=== PATIENT | female | born 1950 | race Caucasian/White ===

== ENCOUNTER → 2017-12-24 | Outpatient (CLI) | payer MEDICARE, MEDICAID | LOC: PREOP 05:38 | PROVIDERS: ATTEND Orthopaedic Surgery | DX: Z01.818 Encounter for other preprocedural examination (principal); M48.061 Spinal stenosis, lumbar region without neurogenic claudication ==

== ENCOUNTER 2018-02-22 10:01 | Outpatient (CLI) | payer MEDICARE, MEDICAID ==
[~2018-02-22] VITALS: Ht 157.5 cm; Wt 75.7 kg
[2018-02-22] MEDS ORDERED: CLOP75TA69 PO (10:49)
[2018-02-22] MEDS ORDERED: ROSU20TA PO (10:49)
[2018-02-22] MEDS ORDERED: METF10002 PO (10:49)
[2018-02-22] MEDS ORDERED: FURO-124 PO (10:49)
[2018-02-22] MEDS ORDERED: INSU100I10 SQ (10:49)
[2018-02-22] MEDS ORDERED: NF-ESOM40C PO (10:49)
[2018-02-22] MEDS ORDERED: IMMU10VI14 SQ (10:49)
[2018-02-22] MEDS ORDERED: GABA-488 PO (10:49)
[2018-02-22] MEDS ORDERED: APIX5TAB PO (10:49)
[2018-02-22] MEDS ORDERED: VARE1TAB22 PO (10:49)
[2018-02-22] MEDS ORDERED: VENL150C PO (10:49)
[2018-02-22] MEDS ORDERED: NF-LAMO200 PO (10:49)
[2018-02-22] MEDS ORDERED: AMIO200T2 PO (10:49)
[2018-02-22] MEDS ORDERED: ROTI1PAT11 TD (10:49)
[2018-02-25] MEDS ORDERED: CETI10TA20 PO (14:06)
[2018-02-25] MEDS ORDERED: NITR0.4T39 SL (14:06)
== END 2018-02-22 16:03 ==
LOC: PREOP 10:01
PROVIDERS: ATTEND Orthopaedic Surgery
DX: Z01.818 Encounter for other preprocedural examination (principal); M48.061 Spinal stenosis, lumbar region without neurogenic claudication

== ENCOUNTER 2018-03-01 05:53 | Inpatient (IN) | payer MEDICARE, MEDICAID ==
[2018-03-01] VITALS (10 sets, daily range): BP systolic 133–177; BP diastolic 50–68
[~2018-03-01] VITALS: Ht 157.5 cm; Wt 75.7 kg
[~2018-03-01 05:53] MED LIST: AMIO200T2 PO; APIX5TAB PO; CETI10TA20 PO; CLOP75TA69 PO; FURO-124 PO; GABA-488 PO; IMMU10VI14 SQ; INSU100I10 SQ; METF10002 PO; NF-ESOM40C PO; NF-LAMO200 PO; NITR0.4T39 SL; ROSU20TA PO; ROTI1PAT11 TD; VARE1TAB22 PO; VENL150C PO
[2018-03-01] MEDS ORDERED: CLINDAMYCIN 600 MG/50 ML IVPB 50 ML IV ONE (06:30)
[2018-03-01] MEDS ORDERED: LIDOCAINE PF 2% 5 ML (XYLOCAINE) VIAL ONE (06:31)
[2018-03-01] MEDS ORDERED: proPOfol 200 MG/20 ML (DIPRIVAN) VIAL IV ONE ×3 (06:31→09:27)
[2018-03-01] MEDS ORDERED: ROCURONIUM 10 MG/ML 5 ML SYRINGE IV ONE (06:31)
[2018-03-01] MEDS ORDERED: fentaNYL INJECTION 100 MCG/2 ML AMP ONE ×4 (06:31→14:22)
[2018-03-01] MEDS ORDERED: ONDANSETRON 4 MG/2 ML (SDV) Z0FRAN ONE (06:34)
[2018-03-01] MEDS ORDERED: PROPOFOL INJECTION 50 ML IV ONE (06:35)
[2018-03-01] MEDS ORDERED: SUCCINYLCHOLINE INJ 100 MG/5 ML SYR ONE (06:38)
[2018-03-01] MEDS ORDERED: SCOPOLAMINE 1.5 MG (TRANSDERM-SCOP) PATCH TOP ONE (06:45)
[2018-03-01] MEDS ORDERED: FAMOTIDINE 20MG/2ML IV (PEPCID) IV ONE (06:45)
[2018-03-01] MEDS ORDERED: ONDANSETRON 4 MG/2 ML (SDV) Z0FRAN IV ONE (06:45)
[2018-03-01] MEDS ORDERED: BUP/EPI 0.5% 1:200,000 (SENSORCAINE) 30 ML VIAL ONE (06:50)
[2018-03-01] MEDS ORDERED: VANCOMYCIN 1000 MG/VIAL ONE (06:51)
[2018-03-01] MEDS: LACTATED RINGERS 1,000 ML IV PRN ×2 (07:15→08:55)
[2018-03-01] MEDS ORDERED: ETOMIDATE IV SOLN 20 MG/10 ML VIAL ONE (07:16)
[2018-03-01 07:17] LABS: BASOPHILS # (AUTO) 0.1 10^3/uL (0.0-0.1); BASOPHILS % (AUTO) 0 % (0-10); EOSINOPHILS # (AUTO) 0.3 10^3/uL (0.0-0.3); EOSINOPHILS % (AUTO) 2 % (0-10); HEMATOCRIT 37 % (35-52); HEMOGLOBIN 11.8 G/DL (11.5-16.0); LYMPHOCYTES # (AUTO) 2.6 X 10^3 (1.0-4.0); LYMPHOCYTES % (AUTO) 22 % (12-44); MEAN CORPUSCULAR HEMOGLOBIN 27 PG (25-34); MEAN CORPUSCULAR HGB CONC 32 G/DL (32-36); MEAN CORPUSCULAR VOLUME 84 FL (80-99); MEAN PLATELET VOLUME 10.7 FL (7.4-10.4); MONOCYTES # (AUTO) 0.9 X 10^3 (0.0-1.0); MONOCYTES % (AUTO) 8 % (0-12); NEUTROPHILS # (AUTO) 8.1 X 10^3 (1.8-7.8); NEUTROPHILS % (AUTO) 68 % (42-75); PLATELET COUNT 323 10^3/uL (130-400); RED BLOOD COUNT 4.39 10^6/uL (4.35-5.85); RED CELL DISTRIBUTION WIDTH 17.1 % (10.0-14.5); WHITE BLOOD COUNT 11.9 10^3/uL (4.3-11.0)
[2018-03-01] MEDS ORDERED: KETAMINE HCL 100 MG/ML 5 ML VIAL ONE (07:32)
[2018-03-01 07:37] LABS: BUN/CREATININE RATIO 19; CALCIUM 9.1 MG/DL (8.5-10.1); CARBON DIOXIDE 23 MMOL/L (21-32); CHLORIDE 103 MMOL/L (98-107); CREATININE SERUM 0.79 MG/DL (0.60-1.30); GFR ESTIMATED > 60; GLUCOSE 170 MG/DL (70-105); POTASSIUM 3.4 MMOL/L (3.6-5.0); SODIUM 141 MMOL/L (135-145)
[2018-03-01] MEDS ORDERED: BACITRACIN 100,000 UNIT/NS 1000 ML POUR BOTTLE IR ONE ×2 (07:45)
[2018-03-01] MEDS ORDERED: PHENYLEPHRINE 100 MCG/ML 10 ML (ANESTHESIA) SYR ONE (07:47)
[2018-03-01] MEDS ORDERED: GLYCOPYRROLATE 0.2 MG/ML (ROBINUL) 2 ML VIAL ONE (08:11)
--- NOTE | 2018-03-01 09:43 | Diagnostic Imaging Report ---
Indication: Fluoroscopy for lumbar fusion. Fluoroscopy was provided in the OR for lumbar fusion. 40 seconds of fluoroscopy was utilized. 2 images were obtained demonstrating postop changes of extension of a posterior fusion at L2-3 level. There are vertical stabilization rods and bipedicular screws present from L2-L5 Impression: Fluoroscopy for lumbar spine surgery. Dictated by: Dictated on workstation # [id number]
[2018-03-01] MEDS ORDERED: NITROGLYCERIN 0.4 MG SL TABS BTL 25'S SL PRN (11:00)
[2018-03-01] MEDS ORDERED: BISACODYL 10 MG SUPP (DULCOLAX) PR PRN (11:15)
[2018-03-01] MEDS ORDERED: oxyCODONE/APAP 5/325MG (PERCOCET 5) TABLET PO PRN (11:15)
[2018-03-01] MEDS ORDERED: BISACODYL 5 MG (DULCOLAX) TABLET PO PRN (11:15)
[2018-03-01] MEDS ORDERED: MILK OF MAGNESIA 400 MG/5 ML 30 ML UDC PO PRN (11:15)
[2018-03-01] MEDS ORDERED: ONDANSETRON 4 MG/2 ML (SDV) Z0FRAN IV PRN (11:15)
[2018-03-01] MEDS ORDERED: ACETAMINOPHEN 325 MG TABLET/CAPLET (TYLENOL) PO PRN (11:15)
[2018-03-01] MEDS ORDERED: HYDROmorphone 1 MG/ML (DILAUDID) 1 ML SYRINGE ONE (11:22)
[2018-03-01] MEDS: HYDROmorphone 1 MG/ML (DILAUDID) 1 ML SYRINGE IV PRN ×2 (11:27→11:37)
[2018-03-01] MEDS ORDERED: fentaNYL INJECTION 100 MCG/2 ML AMP IVP PRN (11:45)
[2018-03-01] MEDS ORDERED: ONDANSETRON 4 MG/2 ML (SDV) Z0FRAN IVP PRN (11:45)
[2018-03-01] MEDS ORDERED: MEPERIDINE (DEMEROL) INJ 50 MG/ML IVP PRN (11:45)
[2018-03-01] MEDS: fentaNYL INJECTION 100 MCG/2 ML AMP IVP PRN ×2 (12:19→14:30)
[2018-03-01] MEDS ORDERED: SEVOFLURANE (ULTANE) 15 ML INHAL SOLN ONE (12:57)
[2018-03-01] MEDS: NS IV 1000 ML 1,000 ML IV SCH ×2 (13:47→14:52)
[2018-03-01] MEDS ORDERED: PATIENT MAY USE OWN MED,SINGLE MED PO SCH (14:00)
--- NOTE | 2018-03-01 16:13 | OPERATIVE REPORT ---
DATE OF SERVICE: 03/01/2018 SURGEON: Sheldon Philip DO DAMPPROOFER: MELY Zimmer. This is a medically necessary procedure. Assistance was necessary for retraction of vital neurovascular structures. Without an visitor services assistant, the procedure would not be possible. PREOPERATIVE DIAGNOSES: 1. Adjacent segment disease. 2. Lumbar radiculopathy. 3. Lumbar spinal stenosis (central, foraminal, connective tissue, bony). 4. Neurogenic claudication. POSTOPERATIVE DIAGNOSES: 1. Adjacent segment disease. 2. Lumbar radiculopathy. 3. Lumbar spinal stenosis (central, foraminal, connective tissue, bony). 4. Neurogenic claudication. PROCEDURE PERFORMED: 1. Attempted direct lateral interbody lumbar fusion. 2. L2-L3 posterior instrumentation. 3. L2-L3 posterior spinal fusion. 4. Revision L2-3 bilateral laminectomy and complete facetectomies. 5. Exploration of fusion. 6. Removal of hardware. 7. Use of local bone autograft. 8. Use of human allograft. COMPLICATIONS: None. SPECIMENS SENT: None. ESTIMATED BLOOD LOSS: See anesthesia records. ANESTHESIA: General endotracheal anesthesia with local anesthetic. HISTORY OF PRESENT ILLNESS: This is a very pleasant 67-year-old female who underwent an L3-5 instrumented fusion some time ago. She went on to develop adjacent segment disease at L2-3 and failed conservative measures for this. She did have critical stenosis at this level. It was planned to do a direct lateral fusion with posterior laminectomy and instrumentation. She understood the risks and benefits. DESCRIPTION OF PROCEDURE: The patient was identified by name on wrist band in the preoperative holding area. Her operative site was signed, consent was signed. SCDs were placed. Neuromonitoring was hooked up and antibiotics were started. She was taken to the operating room theater and placed under general endotracheal tube anesthesia, transferred to the operating room table in the lateral position with the left side up. She was secured to the table with 3-inch silk tape. Prepped and draped in usual sterile fashion. After a formal time out a longitudinal incision was then made over the L2-3 disk space. I then proceeded with a standard lateral retroperitoneal approach. There was significant scar tissue from prior surgery. I was unable to palpate the retroperitoneal space with any degree of confidence. I did not feel safe continuing with the procedure due to this scarring and obscuration of the retroperitoneal space. Therefore, I decided to abort. I irrigated the wound. I closed in my usual fashion and applied dressings. I then placed the patient in the prone position on a radiolucent Chito table. I prepped and draped the patient. I have brought in lateral x-ray and I made a midline lumbar incision over the old scar. I proceeded with bilateral subperiosteal paraspinal muscular approach exposing the existing hardware from L3, L4 and L5 as well as the L2-3 disk space. I placed new pedicle screws bilaterally using C-arm guidance at L2. I tested these with EMG neuro monitoring. They were in good position. Final x-ray demonstrated good position of those screws as well. I then removed all of the set screws from L3, L4 and L5 and I removed the rods. I did an exploration of fusion. There was a solid fusion at these levels. I placed a longer tiffany connecting, L2, L3, L4 and L5. I replaced the old set screws from L3 to L5 and I placed new set screws at the pedicle screws at L2. At this point, I did my decompression. This was done through significant scar tissue, which made this process quite difficult. I was able to use a high speed bur and Kerrison rongeurs to completely decompress the L2-3 level where there was significant stenosis. I finished, the thecal sac, the exiting nerve roots were thoroughly decompressed. I irrigated the wound with 2 liters of antibiotic enhanced irrigation, maintained hemostasis. I packed human allograft and local bone autograft in the left and the right gutters to promote posterior spinal fusion. I placed a Hemovac drain. I closed the wound in the usual layered fashion utilizing 0 Vicryl, followed by 2-0 Vicryl, followed by jody for skin. I applied dressings, took the patient in the supine position to the PACU where she awoke without incident. She tolerated the procedure well. PLAN: At this time, is to admit the patient for IV antibiotics, IV pain control and postoperative monitoring. We will have the patient out of bed on postoperative day #1 and discontinue the drain and Mercado per my protocol. Job ID: [id number] DocumentID: [id number] Dictated Date: 03/01/2018 10:36:00 Customer Account Manager Date: 03/01/2018 16:13:08 Dictated By: SHELDON PHILIP DO
[2018-03-01] MEDS: inSUlin ASPART (NovoLOG) 1 UNIT/0.01 ML (CHARGE PER UNIT) SC SCH ×2 (16:43→21:59)
[2018-03-01] MEDS: HYDROcodone/APAP 5 MG/325 MG (LORTAB) TAB PO PRN (20:29)
[2018-03-01] MEDS: ROSUVASTATIN 20 MG (CRESTOR) TABLET PO SCH (21:52)
[2018-03-01] MEDS: DOCUSATE SODIUM 100 MG (COLACE) CAP PO SCH (21:52)
[2018-03-01] MEDS: FAMOTIDINE 20 MG (PEPCID) TABLET PO SCH (21:52)
[2018-03-01] MEDS: GABAPENTIN 300 MG (NEURONTIN) CAP PO SCH (21:52)
[2018-03-01] MEDS: inSUlin DETERMIR 1 UNIT/0.01 ML (LEVEMIR) CHARGE PER UNIT SQ SCH (22:00)
[2018-03-02 00:01] VITALS: BP 151/67
[2018-03-02] MEDS: NS IV 1000 ML 1,000 ML IV SCH ×2 (00:36→10:32)
[2018-03-02 04:20] VITALS: BP 138/63
[2018-03-02 04:46] LABS: HEMOGLOBIN 10.2 G/DL (11.5-16.0); MEAN PLATELET VOLUME 10.9 FL (7.4-10.4); RED BLOOD COUNT 3.8 10^6/uL (4.35-5.85); RED CELL DISTRIBUTION WIDTH 17.6 % (10.0-14.5); WHITE BLOOD COUNT 13.3 10^3/uL (4.3-11.0)
[2018-03-02 05:18] LABS: ALANINE AMINOTRANSFERASE 19 U/L (0-55); ALBUMIN 3.2 GM/DL (3.2-4.5); ALKALINE PHOSPHATASE 84 U/L (40-136); BILIRUBIN,TOTAL 0.4 MG/DL (0.1-1.0); BUN/CREATININE RATIO 17; CALCIUM 8.1 MG/DL (8.5-10.1); CARBON DIOXIDE 26 MMOL/L (21-32); CHLORIDE 106 MMOL/L (98-107); GFR ESTIMATED > 60; GLUCOSE 204 MG/DL (70-105); POTASSIUM 3.5 MMOL/L (3.6-5.0); SODIUM 141 MMOL/L (135-145); TOTAL PROTEIN 5.6 GM/DL (6.4-8.2)
[2018-03-02] MEDS: PANTOPRAZOLE 40 MG (PROTONIX) TAB PO SCH (06:13)
[2018-03-02] MEDS: HYDROcodone/APAP 5 MG/325 MG (LORTAB) TAB PO PRN ×3 (06:13→23:18)
[2018-03-02] MEDS: inSUlin ASPART (NovoLOG) 1 UNIT/0.01 ML (CHARGE PER UNIT) SC SCH ×4 (06:14→23:15)
[2018-03-02] MEDS: VENlafaxine XR 75 MG (EFFEXOR XR) CAP PO SCH (06:14)
[2018-03-02] MEDS: MULTIVIT W/MINERALS TAB (THERAGRAN M) PO SCH (06:14)
[2018-03-02 08:00] VITALS: BP 161/71
[2018-03-02] MEDS: LORATADINE (CLARITIN) 10 MG TAB PO SCH (08:09)
[2018-03-02] MEDS: CYCLOBENZAPRINE 10 MG (FLEXERIL) TAB PO PRN ×2 (08:09→20:29)
[2018-03-02] MEDS: DOCUSATE SODIUM 100 MG (COLACE) CAP PO SCH ×2 (08:09→20:28)
[2018-03-02] MEDS: AMIODARONE 200 MG (CORDARONE) TAB PO SCH (08:09)
[2018-03-02] MEDS: FUROSEMIDE 40 MG (LASIX) TAB PO SCH (08:09)
[2018-03-02] MEDS: FAMOTIDINE 20 MG (PEPCID) TABLET PO SCH ×2 (08:09→20:29)
[2018-03-02] MEDS: ROTIGOTINE 6 MG TD SCH (08:10)
--- NOTE | 2018-03-02 09:04 | Progress Note (SOAP) ---
Subjective Date Seen by Provider: March 02, 2018 Time Seen by Provider: 05:00 Subjective/Events-last exam POD #1 s/p L2-3 laminectomy with extension of PSIF. She is laying in bed sadler c/ o mild back pain. Denies n/t weakness h/a f/c/n/v/cp/sob. Review of Systems General: No Chills, No Night Sweats HEENT: No Head Aches Pulmonary: No Dyspnea Cardiovascular: No: Chest Pain Gastrointestinal: No: Nausea, Vomiting, Abdominal Pain Musculoskeletal: back pain Neurological: No: Weakness Objective Exam Vital Signs Date Time Temp Pulse Resp B/P (MAP) Pulse Ox O2 Delivery O2 Flow Rate FiO2 03/02/18 08:00 97.2 61 20 161/71 (101) 96 Room Air 03/02/18 04:20 97.3 62 16 138/63 (88) 96 Room Air 03/02/18 00:01 97.6 68 16 151/67 (95) 94 Room Air 03/01/18 20:30 Nasal Cannula 3.00 03/01/18 19:40 97.8 66 16 141/66 (91) 95 Room Air 03/01/18 15:25 96.7 64 16 134/67 (89) 98 Room Air 03/01/18 14:55 68 133/66 (88) 98 Room Air 03/01/18 14:25 68 145/67 (93) 98 Room Air 03/01/18 14:00 96 Nasal Cannula 3.00 03/01/18 13:55 71 158/68 (98) 94 Room Air 03/01/18 13:25 71 166/68 (100) 93 Room Air 03/01/18 12:55 74 170/63 (98) 97 Room Air 03/01/18 12:25 97.1 75 16 176/63 (100) 98 Room Air 03/01/18 12:00 Nasal Cannula 3.00 03/01/18 11:55 96.9 71 16 177/66 (103) 96 Room Air I & O 03/02/18 07:00 Intake Total 4470 ml Output Total 1345 ml Balance 3125 ml Capillary Refill : Less Than 3 Seconds General Appearance: No Apparent Distress (cpap in place) Neck: Normal Inspection Respiratory: No Accessory Muscle Use, No Respiratory Distress Cardiovascular: Regular Rate, Rhythm, No Edema Peripheral Pulses: 2+ Dorsalis Pedis (R), 2+ Left Dors-Pedis (L) Gastrointestinal: other (left side incision, no retroperitoneal signs incluidng vangie rodríguez, agapito lara) Extremity: Normal Capillary Refill, Normal Inspection Neurologic/Psychiatric: Alert, Oriented x3, No Motor/Sensory Deficits Skin: Normal Color Results Lab Laboratory Tests 03/01/18 10:53: Glucometer 247H 03/01/18 16:20: Glucometer 319H 03/01/18 20:58: Glucometer 272H 03/02/18 03:55: White Blood Count 13.3H, Red Blood Count 3.80L, Hemoglobin 10.2L, Hematocrit 32L , Mean Corpuscular Volume 84, Mean Corpuscular Hemoglobin 27, Mean Corpuscular Hemoglobin Concent 32, Red Cell Distribution Width 17.6H, Platelet Count 327, Mean Platelet Volume 10.9H, Sodium Level 141, Potassium Level 3.5L, Chloride Level 106, Carbon Dioxide Level 26, Anion Gap 9, Blood Urea Nitrogen 12, Creatinine 0.70, Estimat Glomerular Filtration Rate > 60, BUN/Creatinine Ratio 17, Glucose Level 204H, Calcium Level 8.1L, Total Bilirubin 0.4, Aspartate Amino Transf (AST/SGOT) 19, Alanine Aminotransferase (ALT/SGPT) 19, Alkaline Phosphatase 84, Total Protein 5.6L, Albumin 3.2 Assessment/Plan Assessment/Plan Assess & Plan/Chief Complaint assessment; POD #1 s/p L2-3 laminectomy with extension of PSIF attempted L2-3 lateral COPD Diabetes CAD HTN Plan: brace when OOB monitor labs continue drain PT hold anti coagulation until :POD #5, scd for dvt prophylaxis pain control diabetic diet with bgl achs, ssi Clinical Quality Measures DVT/VTE Risk/Contraindication: Risk Factor Score Per Nursin RFS Level Per Nursing on Admit: 4+=Very High BLANKA MCDONALD March 02, 2018 09:04
--- NOTE | 2018-03-02 09:28 | Diagnostic Imaging Report ---
INDICATION: Back pain. FINDINGS: There are postsurgical changes of an L2 through L5 fusion with bilateral pedicle screws and rods. The hardware is in satisfactory position. Bone grafts are seen in the L3-4 and L4-5 disc spaces. The vertebral body heights are well-maintained. There is no spondylolysis or spondylolisthesis. IMPRESSION: Stable postsurgical changes of L2 through L5 fusion as described above. Dictated by: Dictated on workstation # [id number]
--- NOTE | 2018-03-02 11:08 | Physical Therapy Evaluation ---
PT Evaluation-General Medical Diagnosis Admission Date March 01, 2018 at 05:53 Medical Diagnosis: L2-3 laminectomy Onset Date: March 01, 2018 Therapy Diagnosis Therapy Diagnosis: impaired mobility, strength, endurance Height/Weight Height (Feet): 5 Height (Inches): 2.00 Weight (Pounds): 167 Weight (Ounces): 0.0 Precautions Precautions/Isolations: Fall Prevention, Standard Precautions Weight Bear Status Right Lower Extremity: Right Full Weight Bearing Left Lower Extremity: Left Full Weight Bearing Referral Physician: Jorge L Romero Reason for Referral: Evaluation/Treatment Medical History Pertinent Medical History: CAD, COPD, DM, HTN Current History L2-3 laminectomy with extension of PSIF Reviewed History: Yes Social History Home: Single Level Current Living Status: Alone Entry Into Home: Level Entry Prior/Core FIM Prior Level of Function Functional [place] Measure 0=Not Assessed/NA 4=Minimal Assistance 1=Total Assistance 5=Supervision or Setup 2=Maximal Assistance 6=Modified [place] 3=Moderate Assistance 7=Complete [place] Bed Mobility: 6 Transfers (B,C,W/C) (FIM): 6 Gait: 6 Patient used a rolling walker before and had a scooter for long distances PT Evaluation-Current Subjective Patient in bed pre tx, agrees to PT, has 5/10 pain in low back. Pt/Family Goals to be independent at home Objective Patient Orientation: Person, Place, Situation Attachments: IV TLSO ROM/Strength ROM Lower Extremities WNL Strength Lower Extremities 4/5 gross bilateral lower extremities Neuromuscular (Tone, Coordination, Reflexes) NT Sensory Vision: Functional Hearing: Functional Sensation Right Lower Extremit: Intact Sensation Left Lower Extremity: Intact Transfers Functional [place] Measure 0=Not Assessed/NA 4=Minimal Assistance 1=Total Assistance 5=Supervision or Setup 2=Maximal Assistance 6=Modified [place] 3=Moderate Assistance 7=Complete [place] Transfers (B, C, W/C) (FIM): 5 Scootin Rollin Supine to/from Sit: 5 Sit to/from Stand: 5 bed t/f WC(FIM only if WC use): 5 Gait Mode of Locomotion: Walk Anticipated Mode of Locomotion: Walk Gait (FIM): 5 Distance: 150' Gait Level of Assist: 5 Gait Persons Needed: 1 Gait Assistive Device: FWW Comments/Gait Description slow ambulation but steady Balance Sitting Static: Normal Sitting Dynamic: Normal Standing Static: Good Standing Dynamic: Good Treatment seated exercises x20 (AP, LAQ) Assessment/Needs Patient has impaired mobility, strength, endurance post lumbar spine surgery. Rehab Potential: Fair PT Short Term Goals Short Term Goals Time Frame: March 09, 2018 Transfers (B,C,W/C) (FIM): 6 Gait (FIM): 6 Gait Distance Comment: 200' Gait Level of Assist: 6 Gait Assistive Device: FWW PT Plan Problem List Problem List: Activity Tolerance, Functional Strength, Safety, Balance, Gait, Transfer, Bed Mobility, ROM Treatment/Plan Treatment Plan: Continue Plan of Care Treatment Plan: Bed Mobility, Education, Functional Activity Kathy, Functional Strength, Gait, Safety, Therapeutic Exercise, Transfers Treatment Duration: March 09, 2018 Frequency: 11 times per week Estimated Hrs Per Day: .25 hour per day (15-30') Patient and/or Family Agrees t: Yes Safety Risks/Education Patient Education: Gait Training, Transfer Techniques, Reviewed Precautions, Correct Positioning, Reviewed Don/Doff Brace, Disease Process, Safety Issues Teaching Recipient: Patient Teaching Methods: Demonstration, Discussion Response to Teaching: Reinforcement Needed Discharge Recommendations Plan Patient will perform bed mobility and transfer training, balance and endurance training, functional strengthening, stair training, gait training, and education , to improve functional mobility and independence at home. Therapy D/C Recommendations: Home w/ Family Support Time/GCodes Time In: 1045 Time Out: 1105 Total Billed Treatment Time: 20 Total Billed Treatment 1 visit TAMIR 20' EDGARD SU PT March 02, 2018 11:08
[2018-03-02 12:00] VITALS: BP 123/59
--- NOTE | 2018-03-02 13:04 | Consultation-Hospitalist ---
HPI History of Present Illness: HPI/Chief Complaint The patient is a 67-year-old white female who underwent a lumbar discectomy and fusion on 03/01. She has previously had a discectomy and fusion at the next level. She reports that the numbness has left and she was able to walk without severe pain today. She has multiple other morbidities. These include tobaccoism/COPD, diabetes mellitus type II, and coronary artery disease. She continues to smoke. She also reports that her blood sugars have been much higher here in the hospital than they are at home. She uses only Levemir and her outpatient regimen. Source: patient Exam Limitations: no limitations Date Seen 03/02/18 Attending Physician Sheldon Philip DO PCP No,Local Physician Referring Physician Date of Admission March 01, 2018 at 05:53 Home Medications & Allergies Home Medications Reviewed patient Home Medication Reconciliation performed by pharmacy medication reconciliations nursing technician and/or nursing. Patients Allergies have been reviewed. Allergies Allergies Coded Allergies Penicillins (Verified Allergy, Unknown, RASH, 02/22/18) adhesive tape (Verified Allergy, Unknown, HIVES, 02/22/18) codeine (Verified Allergy, Unknown, NAUSEA, 02/22/18) morphine (Verified Allergy, Unknown, HIVES, 02/22/18) diazepam (Verified Adverse Reaction, Unknown, hallicunications, 02/22/18) Past Xrbstpp-Jopglx-Vhmmzj Hx Past Med/Social Hx: Reviewed Nursing Past Med/Soc Hx Patient Social History Alcohol Use: Denies Use Recreational Drug Use: No Smoking Status: Current Everyday Smoker Type Used: Cigarettes Physical Abuse Screen: No Sexual Abuse: No Recent Foreign Travel: No Contact w/other who traveled: No Recent Hopitalizations: No Recent Infectious Disease Expo: No Immunizations Up To Date Date of Pneumonia Vaccine: February 22, 2017 Seasonal Allergies Seasonal Allergies: No Past Medical History Currently Using BIPAP: Yes Gastrointestinal: Gastroesophageal Reflux Musculoskeletal: Arthritis, Chronic Back Pain, Fractures Psychosocial: Depression History of Blood Disorders: No Family History Diabetes mellitus 19 MOTHER Review of Systems Constitutional: see HPI EENTM: no symptoms reported Respiratory: cough, dyspnea on exertion Cardiovascular: no symptoms reported Gastrointestinal: no symptoms reported Genitourinary: no symptoms reported : No Musculoskeletal: back pain, neck pain Skin: no symptoms reported Psychiatric/Neurological: No Symptoms Reported Physical Exam Physical Exam Vital Signs Vital Signs - First Documented 03/01/18 03/01/18 06:30 12:00 Temp 98.4 Pulse 67 Resp 16 B/P (MAP) 143/50 (81) Pulse Ox 94 O2 Delivery Room Air O2 Flow Rate 3.00 Capillary Refill : Less Than 3 Seconds General Appearance: No Apparent Distress Eyes: Bilateral Eye Normal Inspection HEENT: Normal ENT Inspection Neck: Normal Inspection Respiratory: Other (increased AP diameter. Distant breath sounds) Cardiovascular: Other (grade 2-3 systolic murmur heard at the right and left second intercostal space) Gastrointestinal: Normal Bowel Sounds, No Organomegaly Extremity: Normal Capillary Refill, Normal Inspection Neurologic/Psychiatric: Alert, Oriented x3, No Motor/Sensory Deficits, Normal Mood/Affect Skin: Normal Color, Warm/Dry Lymphatic: No Adenopathy Results Results/Procedures Labs Laboratory Tests 03/01/18 07:04 03/02/18 03:55 Patient resulted labs reviewed. Assessment/Plan Assessment and Plan Assess & Plan/Chief Complaint Lumbar disc disease with radiculopathy. 2.COPD/tobaccoism. 3.diabetes mellitus type II. 4.history of coronary artery disease Plan: Continue PT and activity. Make adjustments to maintain blood sugars below 200. Clinical Quality Measures DVT/VTE Risk/Contraindication: Risk Factor Score Per Nursin RFS Level Per Nursing on Admit: 4+=Very High ROSA M PUENTES MD March 02, 2018 13:04
--- NOTE | 2018-03-02 13:07 | Anesthesia-General Post-Op ---
General Patient Condition Mental Status/LOC: Same as Preop Cardiovascular: Satisfactory Nausea/Vomiting: Absent Respiratory: Satisfactory Pain: Controlled Complications: Absent Post Op Complications Complications None Follow Up Care/Instructions Patient Instructions None needed. Anesthesia/Patient Condition Patient Condition Patient is doing well, no complaints, stable vital signs, no apparent adverse anesthesia problems. No complications reported per nursing. D/C home per [facility] Criteria: Yes PETER ARCOS CRNA March 02, 2018 13:07
--- NOTE | 2018-03-02 13:40 | Occupational Therapy Eval ---
OT Evaluation-General/PLF Medical Diagnosis Admission Date March 01, 2018 at 05:53 Medical Diagnosis: L2-3 laminectomy Onset Date: March 01, 2018 Therapy Diagnosis Therapy Diagnosis: Weakness Height/Weight Height (Feet): 5 Height (Inches): 2.00 Weight (Pounds): 167 Weight (Ounces): 0.0 Precautions Precautions/Isolations: Fall Prevention, Standard Precautions Safety Interventions: None Weight Bear Status back/spinal precautions. Referral Physician: Jorge L Romero Referral Comments Pt. has a new back brace in room. Nursing states that physician wants it on when up. Medical History Pertinent Medical History: CAD, COPD, DM, HTN Additional Medical History bilateral knee replacements. Reviewed History: Yes Social History Home: Single Level Current Living Status: Alone Entry Into Home: Level Entry ADL-Prior Level of Function ADL PLOF Comments Pt. was independent with daily tasks. 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 DME/Equipment: Shower DME/Equipment Comments Pt. has a walker but does not use it. Drive Self: Yes OT Current Status Subjective Pt. states that she has pain, but does not state pain level. Pain is in back area. Appearance Pt. in bed. Agrees to OT treatment. Mental Status/Objective Patient Orientation: Person, Place, Time, Situation Attachments: Drains, IV Current Hand Dominance: Right Upper Extremity ROM Pt. states that she hurt her shoulder in winter time by falling on it. States that she has to get a shoulder replacement. Shoulder is impaired. Left shoulder-WFL ADL-Treatment Functional [place] Measure 0=Not Assessed/NA 4=Minimal Assistance 1=Total Assistance 5=Supervision or Setup 2=Maximal Assistance 6=Modified [place] 3=Moderate Assistance 7=Complete IndependenceIRFPAI Quality Coding Scale 6 Independent with activity with or without an assistive device 5 Patient requires set up or clean up by helper. Patient completes activity by themselves 4 Supervision or touching assist (CGA). [place] provide cues , steadying assist 3 The helper provides less than half the effort to complete the activity 2 The helper provides more than half the effort to complete the activity 1 Dependent. The helper does all the effort to complete an activity 7 Patient refused to complete or attempt activity 9 The patient did not perform the activity before the current illness or injury 88 Not attempted due to Medical conditions or safety concerns Eating (FIM): 5 (Set up to open packages.) Grooming (FIM): 5 Bathing (FIM): 4 (Min assist to wash rear jessenia area only.) Upper Body Dressing (FIM): 5 (SBA to don sports bra and shirt.) Lower Body Dressing (FIM): 4 (Min assist to don pants due to catheter. SBA to don slippers.) Transfers (B, C, W/C) (FIM): 4 (CGA for supine-sit and sit-stand/transfer.) Toilet/Commode Transfer (FIM): 5 Other Treatments Pt. seen twice this morning, once for eval, and second time for ADLs after brace arrived. Pt. has sock aide and dressing stick at home, but states that she is unsure how to use them. Pt. transferred to chair and completed spongebath up in chair. Brace was fit to pt. Ambulated to toilet after treatment. Pt. would benefit from full education regarding hip kit. Education OT Patient Education: Correct positioning, Modified ADL techniques, Progress toward Goal/Update tx plan, Purpose of tx/functional activities, Reviewed precautions, Rehab process, Transfer techniques, Use of adapted equipment Teaching Recipient: Patient Teaching Methods: Demonstration, Discussion Response to Teaching: Verbalize Understanding, Return Demonstration OT Short Term Goals Short Term Goals Transfers (B,C,W/C) (FIM): 6 1=Demonstrate adherence to instructed precautions during ADL tasks. 2=Patient will verbalize/demonstrate understanding of assistive devices/ modifications for ADL. 3=Patient will improve strength/tolerance for activity to enable patient to perform ADL's. OT Field Checker Goals Field Checker Goals Time Frame: March 09, 2018 Eating (FIM): 6 Grooming(FIM): 6 Bathing(FIM): 6 Upper Body Dressing(FIM): 6 Lower Body Dressing(FIM): 6 Toileting(FIM): 6 Transfers (B,C,W/C) (FIM): 6 Toilet/Commode Transfer(FIM): 6 Shower Transfer(FIM): 6 Additional Goals: 1-Demonstrate ADL Tasks, 2-Verbalize Understanding, 3- ImproveStrength/Kathy 1=Demonstrate adherence to instructed precautions during ADL tasks. 2=Patient will verbalize/demonstrate understanding of assistive devices/ modifications for ADL. 3=Patient will improve strength/tolerance for activity to enable patient to perform ADL's. OT Education/Plan Problem List/Assessment Assessment: Decreased Activ Tolerance, Impaired I ADL's, Impaired Self-Care Skills Discharge Recommendations Plan/Recommendations: Continue POC Therapy D/C Recommendations: Home Independently, Occupational Therapy Home Care , Scheduled Assistance Equpiment Recommendations-D/C: Hip Kit Treatment Plan/Plan of Care Treatment,Training & Education: Yes Patient would benefit from OT for education, treatment and training to promote independence in ADL's, mobility, safety and/or upper extremity function for ADL' s. Plan of Care: ADL Retraining, Functional Mobility Treatment Duration: March 09, 2018 Frequency: 5 times per week Estimated Hrs Per Day: .5 hour per day Agreement: Yes Rehab Potential: Good Time/GCodes Start Time: 10:05 Stop Time: 11:50 Total Time Billed (hr/min): 55 Billed Treatment Time 6256-0621 1, EVM x 15minutes 4422-6660 1, ADL x 40minutes ELIECER NUÑEZ OT March 02, 2018 13:40
--- NOTE | 2018-03-02 15:29 | Physical Therapy Daily Note ---
PT Daily Note-Current Subjective Patient in bed pre tx, agrees to PT, has 6/10 pain in low back. Appearance Patient in recliner post tx with nurse call, phone, tray, all needs met. Mental Status Patient Orientation: Normal For Age Attachments: IV TLSO Transfers Functional [place] Measure 0=Not Assessed/NA 4=Minimal Assistance 1=Total Assistance 5=Supervision or Setup 2=Maximal Assistance 6=Modified [place] 3=Moderate Assistance 7=Complete IndependenceIRFPAI Quality Coding Scale 6 Independent with activity with or without an assistive device 5 Patient requires set up or clean up by helper. Patient completes activity by themselves 4 Supervision or touching assist (CGA). [place] provide cues , steadying assist 3 The helper provides less than half the effort to complete the activity 2 The helper provides more than half the effort to complete the activity 1 Dependent. The helper does all the effort to complete an activity 7 Patient refused to complete or attempt activity 9 The patient did not perform the activity before the current illness or injury 88 Not attempted due to Medical conditions or safety concerns Transfers (B, C, W/C) (FIM): 5 Scootin Rollin Supine to/from Sit: 5 Sit to/from Stand: 5 Bed to/from Chair: 5 Weight Bearing Right Lower Extremity: Right Full Weight Bearing Left Lower Extremity: Left Full Weight Bearing Gait Training Gait (FIM): 5 Distance: 250' Gait Level of Assist: 5 Gait Persons Needed: 1 Gait Assistive Device: FWW slow, antalgic, but steady Exercises Seated Therapy Exercises: Ankle pumps, Long arc quads Seated Reps: 20 Treatments bed mobility and transfers, ambulation, functional strengthening Assessment Current Status: Fair Progress improved endurance PT Short Term Goals Short Term Goals Time Frame: March 09, 2018 Transfers (B,C,W/C) (FIM): 6 Gait (FIM): 6 Gait Distance Comment: 200' Gait Level of Assist: 6 Gait Assistive Device: FWW PT Plan Problem List Problem List: Activity Tolerance, Functional Strength, Safety, Balance, Gait, Transfer, Bed Mobility, ROM Treatment/Plan Treatment Plan: Continue Plan of Care Treatment Plan: Bed Mobility, Education, Functional Activity Kathy, Functional Strength, Gait, Safety, Therapeutic Exercise, Transfers Treatment Duration: March 09, 2018 Frequency: 11 times per week Estimated Hrs Per Day: .25 hour per day (15-30') Patient and/or Family Agrees t: Yes Safety Risks/Education Patient Education: Gait Training, Transfer Techniques, Correct Positioning, Reviewed Don/Doff Brace, Safety Issues Teaching Recipient: Patient Teaching Methods: Demonstration, Discussion Response to Teaching: Reinforcement Needed Time/GCodes Time In: 1505 Time Out: 1520 Total Billed Treatment Time: 15 Total Billed Treatment 1 visit GT 15' EDGARD SU PT March 02, 2018 15:29
[2018-03-02 15:50] VITALS: BP 144/65
[2018-03-02 20:20] VITALS: BP 108/51
[2018-03-02] MEDS: GABAPENTIN 300 MG (NEURONTIN) CAP PO SCH (20:29)
[2018-03-02] MEDS: ROSUVASTATIN 20 MG (CRESTOR) TABLET PO SCH (20:32)
[2018-03-02] MEDS: inSUlin DETERMIR 1 UNIT/0.01 ML (LEVEMIR) CHARGE PER UNIT SQ SCH (23:15)
[2018-03-03 00:08] VITALS: BP 143/79
[2018-03-03] MEDS: NS IV 1000 ML 1,000 ML IV SCH (01:23)
[2018-03-03 04:42] VITALS: BP 137/74
[2018-03-03] MEDS ORDERED: OXYC-471 PO (05:54)
--- NOTE | 2018-03-03 05:57 | Discharge Inst-Simple/Standard ---
Discharge Inst-Standard Discharge Medications New, Converted or Re-Newed RX: RX on Chart Patient Instructions/Follow Up Plan of Care/Instructions/FU: may resume anti coagulation - plavix and eliquis, on POD #5 - 03/06/2018 - cousneled on s/s of epidural hematoma dont bend lift twist push or pull keep dressings on, keep incision dry follow up in 2 weeks in clinic wear back brace when ambulatory Activity as Tolerated: No Discharge Diet: ADA Diet Return to The Hospital For: shortness of breath, chest pain LE swelling, redness, or warmth or pain neurologic changes fever, chills BLANKA MCDONALD March 03, 2018 05:57
[2018-03-03] MEDS: inSUlin ASPART (NovoLOG) 1 UNIT/0.01 ML (CHARGE PER UNIT) SC SCH ×2 (06:00→11:49)
--- NOTE | 2018-03-03 06:03 | Discharge Summary ---
Diagnosis/Chief Complaint Date of Admission March 01, 2018 at 05:53 Date of Discharge 03/03/2018 Admission Diagnosis Admission Diagnosis lumbar stenosis with neurogenic claudication Discharge Diagnosis same Reason Hospital Visit Lumbar decompression and fusion Discharge Summary Hospital Course Hospital Course Kim was admitted for lumbar stenosis with neurogenic claudication referactory to conservative treatment. She has a significant history of diabetes, copd and cad. She tolerated the surgery well and progressed with PT post operatively. Her vs remained stable and pain was well controlled. She was dismissed home on POD #2 Labs Laboratory Tests 03/01/18 06:29: Glucometer 164H 03/01/18 07:04: White Blood Count 11.9H, Red Cell Distribution Width 17.1H, Mean Platelet Volume 10.7H, Neutrophils # (Auto) 8.1H, Potassium Level 3.4L, Anion Gap 15H, Glucose Level 170H 03/01/18 10:53: Glucometer 247H 03/01/18 16:20: Glucometer 319H 03/01/18 20:58: Glucometer 272H 03/02/18 03:55: White Blood Count 13.3H, Red Blood Count 3.80L, Hemoglobin 10.2L, Hematocrit 32L , Red Cell Distribution Width 17.6H, Mean Platelet Volume 10.9H, Potassium Level 3.5L, Glucose Level 204H, Calcium Level 8.1L, Total Protein 5.6L 03/02/18 11:27: Glucometer 224H 03/02/18 16:17: Glucometer 241H 03/02/18 21:19: Glucometer 253H 03/03/18 05:31: post op imaging shows stable PLDF L2-5 Procedures None. Discharge Physical Examination Allergies: Coded Allergies: Penicillins (Verified Allergy, Unknown, RASH, 02/22/18) adhesive tape (Verified Allergy, Unknown, HIVES, 02/22/18) codeine (Verified Allergy, Unknown, NAUSEA, 02/22/18) morphine (Verified Allergy, Unknown, HIVES, 02/22/18) diazepam (Verified Adverse Reaction, Unknown, hallicunications, 02/22/18) Vitals & I&Os Vital Signs Date Time Temp Pulse Resp B/P (MAP) Pulse Ox O2 Delivery O2 Flow Rate FiO2 03/03/18 04:42 97.7 66 19 137/74 (95) 94 Room Air 03/01/18 20:30 3.00 General Appearance: Alert, Oriented X3, Cooperative, No Acute Distress HEENT: Atraumatic Cardiovascular: Regular Rate Abdominal: Soft, No Tenderness, No Masses Extremities: No Clubbing, No Cyanosis, No Edema, Normal Pulses Skin: No Rashes, No Breakdown Neuro: Normal Gait, Normal Speech, Strength at 5/5 X4 Ext, Normal Tone, Sensation Intact Psych/Mental Status: Mental Status NL Discussion & Recommendations Patient to be dismissed home Rx for pain medication on chart patient counseled and when to resume anti coagulation as well as s/s of epidural hematome will follow up in the clinic in 2 weeks for post operative care Discharge Home Medications Reviewed and agree with Discharge Medication list on patient's Discharge Instruction sheet Instructions to Patient/Family Please see electronic discharge instructions given to patient. Clinical Quality Measures DVT/VTE Risk/Contraindication: Risk Factor Score Per Nursin RFS Level Per Nursing on Admit: 4+=Very High BLANKA MCDONALD March 03, 2018 06:03
[2018-03-03 06:48] LABS: BASOPHILS % (AUTO) 0 % (0-10); EOSINOPHILS # (AUTO) 0.2 10^3/uL (0.0-0.3); EOSINOPHILS % (AUTO) 2 % (0-10); HEMATOCRIT 32 % (35-52); HEMOGLOBIN 9.6 G/DL (11.5-16.0); LYMPHOCYTES # (AUTO) 2.6 X 10^3 (1.0-4.0); LYMPHOCYTES % (AUTO) 25 % (12-44); MEAN CORPUSCULAR HEMOGLOBIN 26 PG (25-34); MEAN CORPUSCULAR HGB CONC 30 G/DL (32-36); MEAN CORPUSCULAR VOLUME 86 FL (80-99); MEAN PLATELET VOLUME 9.6 FL (7.4-10.4); MONOCYTES # (AUTO) 0.9 X 10^3 (0.0-1.0); MONOCYTES % (AUTO) 8 % (0-12); NEUTROPHILS # (AUTO) 6.7 X 10^3 (1.8-7.8); NEUTROPHILS % (AUTO) 65 % (42-75); PLATELET COUNT 302 10^3/uL (130-400); RED CELL DISTRIBUTION WIDTH 17.8 % (10.0-14.5); WHITE BLOOD COUNT 10.4 10^3/uL (4.3-11.0)
[2018-03-03] MEDS: VENlafaxine XR 75 MG (EFFEXOR XR) CAP PO SCH (06:49)
[2018-03-03] MEDS: PANTOPRAZOLE 40 MG (PROTONIX) TAB PO SCH (06:50)
[2018-03-03] MEDS: MULTIVIT W/MINERALS TAB (THERAGRAN M) PO SCH (06:50)
[2018-03-03 08:00] VITALS: BP 123/86
[2018-03-03] MEDS: DOCUSATE SODIUM 100 MG (COLACE) CAP PO SCH (08:18)
[2018-03-03] MEDS: LORATADINE (CLARITIN) 10 MG TAB PO SCH (08:18)
[2018-03-03] MEDS: FUROSEMIDE 40 MG (LASIX) TAB PO SCH (08:18)
[2018-03-03] MEDS: AMIODARONE 200 MG (CORDARONE) TAB PO SCH (08:18)
[2018-03-03] MEDS: FAMOTIDINE 20 MG (PEPCID) TABLET PO SCH (08:18)
[2018-03-03] MEDS: ROTIGOTINE 6 MG TD SCH (08:19)
[2018-03-03] MEDS: HYDROcodone/APAP 5 MG/325 MG (LORTAB) TAB PO PRN (08:33)
--- NOTE | 2018-03-03 10:02 | Physical Therapy Daily Note ---
PT Daily Note-Current Subjective Patient in bed pre tx, agrees to PT, has pain of 6/10 in low back. Appearance Patient in bed post tx with nurse call, phone, tray, family in the room. Mental Status Patient Orientation: Normal For Age TLSO Transfers Functional [place] Measure 0=Not Assessed/NA 4=Minimal Assistance 1=Total Assistance 5=Supervision or Setup 2=Maximal Assistance 6=Modified [place] 3=Moderate Assistance 7=Complete IndependenceIRFPAI Quality Coding Scale 6 Independent with activity with or without an assistive device 5 Patient requires set up or clean up by helper. Patient completes activity by themselves 4 Supervision or touching assist (CGA). [place] provide cues , steadying assist 3 The helper provides less than half the effort to complete the activity 2 The helper provides more than half the effort to complete the activity 1 Dependent. The helper does all the effort to complete an activity 7 Patient refused to complete or attempt activity 9 The patient did not perform the activity before the current illness or injury 88 Not attempted due to Medical conditions or safety concerns Transfers (B, C, W/C) (FIM): 5 Scootin Rollin Supine to/from Sit: 5 Sit to/from Stand: 5 Bed to/from Chair: 5 Weight Bearing Right Lower Extremity: Right Full Weight Bearing Left Lower Extremity: Left Full Weight Bearing Gait Training Gait (FIM): 5 Distance: 300' Gait Level of Assist: 5 Gait Persons Needed: 1 Gait Assistive Device: FWW slow but steady ambulation Treatments bed mobility, transfers, ambulation Assessment Current Status: Fair Progress improving endurance and ambulation PT Short Term Goals Short Term Goals Time Frame: March 09, 2018 Transfers (B,C,W/C) (FIM): 6 Gait (FIM): 6 Gait Distance Comment: 200' Gait Level of Assist: 6 Gait Assistive Device: FWW PT Plan Problem List Problem List: Activity Tolerance, Functional Strength, Safety, Balance, Gait, Transfer, Bed Mobility Treatment/Plan Treatment Plan: Continue Plan of Care Treatment Plan: Bed Mobility, Education, Functional Activity Kathy, Functional Strength, Gait, Safety, Therapeutic Exercise, Transfers Treatment Duration: March 09, 2018 Frequency: 11 times per week Estimated Hrs Per Day: .25 hour per day (15-30') Patient and/or Family Agrees t: Yes Safety Risks/Education Patient Education: Gait Training, Transfer Techniques, Reviewed Precautions, Correct Positioning, Reviewed Don/Doff Brace, Safety Issues Teaching Recipient: Patient Teaching Methods: Demonstration, Discussion Response to Teaching: Reinforcement Needed Time/GCodes Time In: 939 Time Out: 954 Total Billed Treatment Time: 15 Total Billed Treatment 1 visit GT 15' EDGARD SU PT March 03, 2018 10:02
[2018-03-03 12:00] VITALS: BP 128/76
[2018-03-03 13:10] VITALS: BP 128/76
--- NOTE | 2018-03-03 13:58 | Occupational Ther Daily Note ---
OT Current Status-Daily Note Subjective No pain reported. Appearance Pt. is sitting on side of bed. Pt. is going home today. Agrees to get dressed. Mental Status/Objective Patient Orientation: Person, Place, Time Functional [place] Measure 0=Not Assessed/NA 4=Minimal Assistance 1=Total Assistance 5=Supervision or Setup 2=Maximal Assistance 6=Modified [place] 3=Moderate Assistance 7=Complete [place] ADL-Treatment Upper Body (FIM): 4 (Min assist to fasten back brace. SBA to doff/don shirt.) Lower Body Dressing (FIM): 5 (SBA to doff pants, don underwear, pants, and socks. Pt. utilizes dressing stick and sock aide.) Transfers (B, C, W/C) (FIM): 6 (With use of walker.) Other Treatment Pt. is issued toilet tongs and LH sponge and educated on use. Pt. does have DS and sock aide at home. Pt. is shown how to use this equipment in hospital. Pt. is educated again on doffing/donning back brace. Friend in room that is also caregiver. She is educated as well and verbalizes understanding. Education OT Patient Education: Correct positioning, Modified ADL techniques, Progress toward Goal/Update tx plan, Purpose of tx/functional activities, Reviewed precautions, Rehab process, Transfer techniques, Use of adapted equipment Teaching Recipient: Patient Teaching Methods: Demonstration, Discussion Response to Teaching: Verbalize Understanding, Return Demonstration OT Short Term Goals Short Term Goals Transfers (B,C,W/C) (FIM): 6 1=Demonstrate adherence to instructed precautions during ADL tasks. 2=Patient will verbalize/demonstrate understanding of assistive devices/ modifications for ADL. 3=Patient will improve strength/tolerance for activity to enable patient to perform ADL's. OT Porcelain Waxer Goals Half-Way Goals Time Frame: March 09, 2018 Eating (FIM): 6 Grooming(FIM): 6 Bathing(FIM): 6 Upper Body Dressing(FIM): 6 Lower Body Dressing(FIM): 6 Toileting(FIM): 6 Transfers (B,C,W/C) (FIM): 6 Toilet/Commode Transfer(FIM): 6 Shower Transfer(FIM): 6 Additional Goals: 1-Demonstrate ADL Tasks, 2-Verbalize Understanding, 3- ImproveStrength/Kathy 1=Demonstrate adherence to instructed precautions during ADL tasks. 2=Patient will verbalize/demonstrate understanding of assistive devices/ modifications for ADL. 3=Patient will improve strength/tolerance for activity to enable patient to perform ADL's. OT Education/Plan Problem List/Assessment Assessment: Decreased Activ Tolerance, Impaired I ADL's, Impaired Self-Care Skills Discharge Recommendations Plan/Recommendations: Discharge/Goals Met Equpiment Recommendations-D/C: Hip Kit Treatment Plan/Plan of Care Treatment,Training & Education: Yes Plan of Care: ADL Retraining, Functional Mobility Treatment Duration: March 09, 2018 Frequency: 5 times per week Estimated Hrs Per Day: .5 hour per day Agreement: Yes Rehab Potential: Good Time/GCodes Start Time: 10:45 Stop Time: 11:05 Total Time Billed (hr/min): 20 Billed Treatment Time 1, ELIECER FREEDMAN OT March 03, 2018 13:58
== END 2018-03-03 13:14 | disposition home or self-care (01) | DRG 460 ==
LOC: 4TH 05:53 → SURG 05:54 → EDSTATUS 08:45 → 4TH 11:55
PROVIDERS: ADMIT Orthopaedic Surgery; ATTEND Orthopaedic Surgery
PROC: 0SP004Z Removal of Internal Fixation Device from Lumbar Vertebral Joint, Open Approach (ICD-10-PCS; 2018-03-01)
PROC: 0WJH0ZZ Inspection of Retroperitoneum, Open Approach (ICD-10-PCS; 2018-03-01)
PROC: 0SG0071 Fusion of Lumbar Vertebral Joint with Autologous Tissue Substitute, Posterior Approach, Posterior Column, Open Approach (ICD-10-PCS; principal; 2018-03-01 07:40)
DX: M51.16 Intervertebral disc disorders with radiculopathy, lumbar region (principal); M48.062 Spinal stenosis, lumbar region with neurogenic claudication; J44.9 Chronic obstructive pulmonary disease, unspecified; E11.41 Type 2 diabetes mellitus with diabetic mononeuropathy; I25.10 Atherosclerotic heart disease of native coronary artery without angina pectoris; I10 Essential (primary) hypertension; K21.9 Gastro-esophageal reflux disease without esophagitis; M19.91 Primary osteoarthritis, unspecified site; F32.9 Major depressive disorder, single episode, unspecified; F17.210 Nicotine dependence, cigarettes, uncomplicated; I48.91 Unspecified atrial fibrillation; G47.33 Obstructive sleep apnea (adult) (pediatric); Z79.4 Long term (current) use of insulin; Z95.1 Presence of aortocoronary bypass graft
CPT/HCPCS: 36415; 72100; 80048; 80053; 82962; 85025; 85027; 86850; 86900; 86901; 87081; 93005; 94664; 94760

== ENCOUNTER 2019-03-21 12:16 | Outpatient (CLI) | payer MEDICARE, MEDICAID ==
[~2019-03-21] VITALS: Ht 157.5 cm; Wt 77.6 kg
[~2019-03-21 12:16] MED LIST changes: -AMIO200T2 PO; +AMIO200T4 PO; +METF-399 PO; -METF10002 PO; +OXYC-471 PO; -ROSU20TA PO; +ROSU20TA2 PO
[2019-03-21 12:50] VITALS: BP 122/54
[2019-03-21] MEDS ORDERED: INSU200I4 SQ (13:01)
[2019-03-21] MEDS ORDERED: EVOL140P SQ (13:01)
[2019-03-21] MEDS ORDERED: TRAM50TA2 PO (14:06)
[2019-03-21] MEDS ORDERED: RT-ALBUINH INH (14:06)
[2019-03-21] MEDS ORDERED: GBPN600T PO (14:06)
[2019-03-21] MEDS ORDERED: VENL75CA93 PO (14:06)
[2019-03-21 14:12] LABS: BASOPHILS % (AUTO) 0 % (0-10); EOSINOPHILS # (AUTO) 0.2 10^3/uL (0.0-0.3); EOSINOPHILS % (AUTO) 2 % (0-10); HEMATOCRIT 30 % (35-52); HEMOGLOBIN 9.3 G/DL (11.5-16.0); LYMPHOCYTES # (AUTO) 3.1 X 10^3 (1.0-4.0); LYMPHOCYTES % (AUTO) 28 % (12-44); MEAN CORPUSCULAR HEMOGLOBIN 25 PG (25-34); MEAN CORPUSCULAR HGB CONC 31 G/DL (32-36); MEAN CORPUSCULAR VOLUME 80 FL (80-99); MEAN PLATELET VOLUME 10.7 FL (7.4-10.4); MONOCYTES # (AUTO) 0.9 X 10^3 (0.0-1.0); MONOCYTES % (AUTO) 8 % (0-12); NEUTROPHILS # (AUTO) 6.8 X 10^3 (1.8-7.8); NEUTROPHILS % (AUTO) 62 % (42-75); PLATELET COUNT 405 10^3/uL (130-400); RED CELL DISTRIBUTION WIDTH 19.3 % (10.0-14.5)
[2019-03-21 14:28] LABS: CALCIUM 8.7 MG/DL (8.5-10.1); CREATININE SERUM 1.02 MG/DL (0.60-1.30); POTASSIUM 3.1 MMOL/L (3.6-5.0)
--- NOTE | 2019-03-21 14:45 | Diagnostic Imaging Report ---
INDICATION: Preop cervical fusion and degenerative disc disease. EXAMINATION: PA and lateral chest. FINDINGS: There are postop changes from CABG surgery. The heart size and pulmonary vascularity are normal. The lungs are clear. There are no effusions or pneumothoraces. IMPRESSION: Post surgical changes in the chest. There are no acute abnormalities seen. Dictated by: Dictated on workstation # [id number]
== END 2019-03-21 13:55 | disposition home or self-care (01) ==
LOC: PREOP 12:16
PROVIDERS: ATTEND Orthopaedic Surgery
DX: Z01.810 Encounter for preprocedural cardiovascular examination (principal); Z01.811 Encounter for preprocedural respiratory examination; Z01.812 Encounter for preprocedural laboratory examination; Z11.2 Encounter for screening for other bacterial diseases; M48.02 Spinal stenosis, cervical region; E13.9 Other specified diabetes mellitus without complications; J44.9 Chronic obstructive pulmonary disease, unspecified
CPT/HCPCS: 36415; 71046; 80048; 85025; 87081; 93005

== ENCOUNTER 2019-03-28 06:30 | Inpatient (IN) | payer MEDICARE, MEDICAID | END 2019-03-30 18:15 | disposition home or self-care (01) | LOC: 4TH 06:30 → SURG 06:31 → 4TH 03-29 13:27 ==